=== PATIENT | male | born 1970 | race Asian ===

== ENCOUNTER 2024-02-12 07:16 | Day surgery (SDC) | payer OTHER ==
[~2024-02-12] VITALS: Ht 170.2 cm; Wt 79.4 kg
[2024-02-12] MEDS ORDERED: fentaNYL CITRATE/PF 100 MCG/2 ML AMP ONE (07:24)
[2024-02-12] MEDS ORDERED: SIMETHICONE 40 MG/0.6 ML ML ONE (07:24)
[2024-02-12] MEDS ORDERED: MIDAZOLAM HCL 5 MG/5 ML VIAL ONE (07:24)
[2024-02-12 10:09] VITALS: O2SAT 98
[2024-02-12 16:58] VITALS: BP_SYST 105; PULSE 76; RESP 16
== END 2024-02-12 09:19 | disposition home or self-care (01) ==
LOC: SDS 07:16 → SMU 07:36 → SDS 09:19
PROVIDERS: ATTEND Internal Medicine
DX: K59.00 Constipation, unspecified (principal); K29.30 Chronic superficial gastritis without bleeding; K62.5 Hemorrhage of anus and rectum; R10.13 Epigastric pain; K64.8 Other hemorrhoids; I10 Essential (primary) hypertension; K21.9 Gastro-esophageal reflux disease without esophagitis; F17.210 Nicotine dependence, cigarettes, uncomplicated; Z79.899 Other long term (current) drug therapy
CPT/HCPCS: 45378; 43239; 87081; 36415; 88305; 88312; 88313; 99152; G0378; J2250; J3010